=== PATIENT | female | born 1990 | race Caucasian/White ===

== ENCOUNTER 2016-08-16 09:17 | Emergency (ER) | payer OTHER ==
[2016-08-16 09:24] VITALS: BP 122/72; PULSE 100; TEMP 97.8; BMI 25.4
== END 2016-08-16 10:10 | disposition left against medical advice (07) ==
LOC: ED 09:17
DX: Z53.21 Procedure and treatment not carried out due to patient leaving prior to being seen by health care provider (principal)

== ENCOUNTER 2016-08-17 13:19 | Emergency (ER) | payer OTHER ==
[2016-08-17 13:48] VITALS: PULSE 88; TEMP 98.6; BMI 26.5
[2016-08-17 14:01] LABS: RBC/URINE TNTC (0-5)
[2016-08-17 14:05] LABS: LEUKOCYTES/URINE NEG (NEGATIVE); NITRITE/URINE NEG (NEGATIVE); URINE OCCULT BLOOD 2+ (NEG/TRACE)
[2016-08-17 15:11] VITALS: BP 110/64
[2016-08-17] MEDS ORDERED: PANTOPRAZOLE 40 MG TAB PO ONE (15:18)
[2016-08-17] MEDS ORDERED: DIPHENHYDRAMINE 25 MG CAP PO ONE (15:18)
[2016-08-17] MEDS ORDERED: KETOROLAC TROMETHAMINE 60 MG/2 ML SDV IM ONE (15:18)
[2016-08-17] MEDS ORDERED: METOCLOPRAMIDE 10 MG TAB PO ONE (15:20)
[2016-08-17] MEDS ORDERED: DEXAMETHASONE PF 10 MG/1 ML VIAL IM ONE (15:20)
--- NOTE | 2016-08-17 15:23 | EDPRACDOC ---
- General Information Chief Complaint: Headache Stated Complaint: HEADACHE, HEMOPTYSIS Time Seen by Provider: 08/17/16 15:14 Information Source: Patient Mode Of Arrival: Car Home Medications: Home Medications Ketorolac Tromethamine [Toradol] 10 mg PO Q6H PRN #20 tab 08/17/16 Ondansetron [Zofran Odt] 4 mg PO Q6H PRN #20 tab.rapdis 08/17/16 Allergies/Adverse Reactions: Allergies Allergy/AdvReac Type Severity Reaction Status Date / Time No Known Allergies Allergy Verified 08/17/16 13:48 - History of Present Illness Onset: TUESDAY HPI: PT PRESENTS WITH HEADACHE THAT STARTED ON TUESDAY. STATES THIS HEADACHE HAS BEEN DIFFERENT THAT ANY OF HER PREVIOUS ONES WITH NAUSEA AND VOMITING. STATES SHE HAS NOTED SOME BLOOD IN HER VOMIT. DENIES BLOOD IN HER STOOL. PT DENIES FEVER OR CHILLS AND HAS FULL ROM OF NECK. Location: Reports: Generalized Pain Quality: Reports: Moderate Modifying Factors: improves with: Immobilization Relevant History of: Reports: Known Headache disorder Associated Signs and Symptoms: Reports: Frequent Headaches, Nausea/Vomiting, Vision Changes. Denies: Fever/Chills, Stiff Neck ED Past Medical History - History Reviewed Yes Nurses notes reviewed and agree except as marked - Patient Medical History GI/ History: Denies: Urinary Tract Infection Psychological History: Reports: Depression Systemic History: Denies: Cancer Surgical History: Reports: Other (CSXN) - Family Medical History Reports: Hypertension (MGM, MGF, PGF), Diabetes (MGM, PGM), Cancer (MGF-Bladder , Mother-Breast,Skin)Comment Only: Cardiac Disorders (MGM) - Social Medical History Smoking Status: Heavy tobacco smoker (5 or more cigarettes/day or daily pipe/ cigar) EDM Review of Systems - Review of Systems ROS Negative Except as Marked: Yes All systems reviewed and were negative except as marked - Physical Exam Constitutional: Alert Oriented to: Time, Person, Place Last recorded Vital Signs: Last Vital Signs Temp 98.6 F 08/17/16 13:44 Pulse 88 08/17/16 15:10 Resp 18 08/17/16 15:10 BP 110/64 08/17/16 15:10 Pulse Ox 99 08/17/16 15:10 Oxygen Pulse Oxygen Saturation 99 O2 Device Room Air Oxygen Flow Rate Fraction of Inspired Oxygen ( FIO2) - HEENT Head: Normal ( normocephalic) Eye Exam: Normal (PERRL, EOMI, Sclera white) Oropharynx: Normal (Pharynx:Moist without exudate,Gums-no swelling) Nose: No Symptoms Reported (septum midline) Neck: Normal (FROM, trachea at midline) - Respiratory/Cardiovascular Respiratory: Normal - CTA (BBS clear to auscultation without adventitious sounds ) Cardiovascular: Normal (RRR without murmur, gallop or rub) - GI Auscultation: Normal (NABS) Palpation: Normal (Soft,No rebound or guarding, non distended) Tenderness: Non tender Toussaint's Sign: Negative Rectal Exam: Deferred - Musculoskeletal Back: Normal (Non-Tender) Extremities: Normal (Normal tone, Pulses 2+ No cyanosis or edema, FROM) - Integumentary Skin: Normal, Warm, Dry Lymphatics: Normal (no adenopathy) - Neurologic Memory Impaired: Normal Motor Function: Normal (Normal tone, Pulses 2+ No cyanosis or edema, FROM) Cranial Nerve: Normal (CN II-X11 intact sensation, strength 5/5) Cerebellar: Normal Mood Description: Normal Perception: Normal - Differential Diagnosis Cluster, Migraine - Results Urine Color Yellow 08/17/16 13:47 Urine Clarity Hazy 08/17/16 13:47 Urine pH 5.0 (5.0-8.0) 08/17/16 13:47 Ur Specific Cross 1.015 (1.003-1.035) 08/17/16 13:47 Urine Protein Neg (NEG/TRACE) 08/17/16 13:47 Urine Glucose (UA) Neg (NEGATIVE) 08/17/16 13:47 Urine Ketones Neg (NEGATIVE) 08/17/16 13:47 Urine Occult Blood 2+ (NEG/TRACE) H 08/17/16 13:47 Urine Nitrite Neg (NEGATIVE) 08/17/16 13:47 Urine Bilirubin Neg (NEGATIVE) 08/17/16 13:47 Urine Urobilinogen 0.2 MG/DL (0-1) 08/17/16 13:47 Ur Leukocyte Esterase Neg (NEGATIVE) 08/17/16 13:47 Urine RBC Tntc (0-5) H 08/17/16 13:47 Urine WBC 5-10 (0-5) H 08/17/16 13:47 Ur Epithelial Cells 3+ 08/17/16 13:47 Urine Bacteria Few (NEG/FEW) 08/17/16 13:47 Urine Mucus Sm amt (NEG/OCC) 08/17/16 13:47 Urine Test Neg (NEGATIVE) 08/17/16 13:47 Lab Results 08/17/16 08/17/16 13:47 13:47 Urine Color Yellow Urine Clarity Hazy Urine pH 5.0 Ur Specific Cross 1.015 Urine Protein Neg Urine Glucose (UA) Neg Urine Ketones Neg Urine Occult Blood 2+ H Urine Nitrite Neg Urine Bilirubin Neg Urine Urobilinogen 0.2 Ur Leukocyte Esterase Neg Urine RBC Tntc H Urine WBC 5-10 H Ur Epithelial Cells 3+ Urine Bacteria Few Urine Mucus Sm amt Urine Test Neg Decision Time to Discharge: 16:06 - Departure Disposition: Home Condition: Stable Final Diagnosis: Migraine Instructions: Migraine Headache (ED) Education/Counseling Given To: Patient Education/Counseling Given Regarding: Diagnosis, Treatment, Prognosis, Follow Up Referrals: Luis Darnell MD [Staff Physician] - One Week Prescriptions: Ketorolac Tromethamine [Toradol] 10 mg PO Q6H PRN #20 tab PRN Reason: Pain Ondansetron [Zofran Odt] 4 mg PO Q6H PRN #20 tab.rapdis PRN Reason: Nausea/Vomiting Additional Instructions: FOLLOW UP WITH PCP OR NEUROLOGIST NEXT WEEK. INCREASE FLUID INTAKE. RETURN TO THE ED FOR WORSENING SYMPTOMS OR CONCERNS
--- NOTE | 2016-08-17 15:58 | DIRPT ---
CLINICAL DATA: Headache for 5 days. Lightheadedness and weakness with some vomiting. History of migraines. EXAM: CT HEAD WITHOUT CONTRAST TECHNIQUE: Contiguous axial images were obtained from the base of the skull through the vertex without intravenous contrast. COMPARISON: 01/30/2016 FINDINGS: Ventricles are normal in size and configuration. There are no parenchymal masses or mass effect, no evidence of an infarct, no extra-axial masses or abnormal fluid collections and no intracranial hemorrhage. Visualized sinuses and mastoid air cells are clear. No skull lesion. IMPRESSION: Normal unenhanced CT scan of the brain. Electronically Signed By: Gamal Romano M.D. On: 08/17/2016 15:55
== END 2016-08-17 16:16 | disposition home or self-care (01) ==
LOC: ED 13:19 → EDMC 16:16
DX: G43.909 Migraine, unspecified, not intractable, without status migrainosus (principal); F17.200 Nicotine dependence, unspecified, uncomplicated
CPT/HCPCS: 70450; 81001; 81025; 96372; 99282; J1100; J1885; J3490